=== PATIENT | male | born 1960 | race Caucasian/White ===

== ENCOUNTER → 2018-02-21 | Outpatient (CLI) | payer BC ==
[2018-02-21 12:48] LABS: BASO % 0.1 %; BASO ABS # 0.01 K/uL (0-0.2); HEMATOCRIT 43.4 % (42-52); HEMOGLOBIN 15.3 g/dL (14.0-18.0); IG# 0.05 K/uL (0.00-0.02); LYMPH % 8.1 %; LYMPH ABS # 0.87 K/uL (1.2-3.4); MEAN CELL VOLUME 84.4 fL (80-100); MEAN CORPUSCULAR HEMOGLOBIN 29.8 pg (25-34); MEAN CORPUSCULAR HGB CONC 35.3 g/dl (32-36); MEAN PLATELET VOLUME 9.8 fL (7.4-10.4); MONO % 0.9 %; NEUT % 90.4 %; NEUT ABS # 9.77 K/uL (1.4-6.5); PLATELET COUNT 183 K/uL (130-400); RED CELL DISTRIBUTION WIDTH CV 13.3 % (11.5-14.5); RED CELL DISTRIBUTION WIDTH SD 41.1 fL (36.4-46.3)
[2018-02-25 20:17] LABS: ANA SCREEN TC 249X NEGATIVE (NEGATIVE)
== END | disposition home or self-care (01) ==
LOC: C.LAB 11:20
PROVIDERS: ATTEND Physician Assistant
DX: H90.42 Sensorineural hearing loss, unilateral, left ear, with unrestricted hearing on the contralateral side (principal)

== ENCOUNTER → 2018-02-27 | Outpatient (CLI) | payer BC ==
[~2018-02-27] MED LIST: GADAVIST IV PRN
--- NOTE | 2018-02-27 09:38 | DIAGNOSTIC IMAGING REPORT ---
BRAIN COMBO FOR IAC CLINICAL HISTORY: Sudden left sided sensorineural hearing loss. COMPARISON STUDY: No previous studies for comparison. TECHNIQUE: Utilizing a 1.5 Jessica magnet, multiplanar, multiecho imaging of the brain was performed pre and postcontrast administration with thin cut imaging through the internal auditory canals. Injection of 10 cc of Gadavist IV was uneventful. FINDINGS: There are no foci of restricted diffusion. No acute intracranial hemorrhage, midline shift or mass effect is present. Brain volume is normal. Ventricular system is normal. Basilar cisterns are patent. There are no extra-axial collections. Flow-voids for the major intracranial vessels are present. No intracranial mass or pathologic enhancement is present. There is no abnormality within the internal auditory canals. Semicircular canals are intact. There is no mastoid effusion. There is no suspicious marrow replacement. There is mild mucosal thickening of the ethmoid and right maxillary sinuses. Orbits are unremarkable. No areas of significant parenchymal signal abnormality are present. IMPRESSION: 1. Unremarkable MRI of the brain. 2. No abnormality within the internal auditory canals. 3. Mild sinus mucosal thickening. Electronically signed by: Jed Covington M.D. 02/27/2018 9:36 AM Dictated Date/Time: 02/27/2018 9:30 AM
== END | disposition home or self-care (01) ==
LOC: C.MRI 08:04
PROVIDERS: ATTEND Physician Assistant
DX: H90.42 Sensorineural hearing loss, unilateral, left ear, with unrestricted hearing on the contralateral side (principal)

== ENCOUNTER → 2018-03-06 | Outpatient (CLI) | payer BC ==
[2018-03-06 10:17] LABS: BLOOD UREA NITROGEN 17 mg/dl (7-18); CALCIUM 9.1 mg/dl (8.5-10.1); CARBON DIOXIDE 27 mmol/L (21-32); CHOLESTEROL 183 mg/dl (0-200); CREATININE 0.86 mg/dl (0.60-1.40); GLUCOSE 81 mg/dl (70-99); SODIUM 139 mmol/L (136-145); URIC ACID 6.1 mg/dl (2.6-7.2)
[2018-03-06 10:22] LABS: LDL CHOLESTEROL CALCULATED 97 mg/dl
== END | disposition home or self-care (01) ==
LOC: C.LAB 08:26
DX: E79.0 Hyperuricemia without signs of inflammatory arthritis and tophaceous disease (principal); Z13.220 Encounter for screening for lipoid disorders; Z13.1 Encounter for screening for diabetes mellitus